=== PATIENT | female | born 1940 ===

== ENCOUNTER → 2020-04-24 | Day surgery (SDC) | payer MEDICARE, OTHER ==
[2020-04-23 13:34] VITALS: BMI 33.4
[~2020-04-24] MED LIST: LACTATED RINGERS 1,000 ML IV SCH; LIDOCAINE 1% INJ 10MG/ML (20 ML MDV) ONE; PROPOFOL 10 MG/ML 20 ML VIAL IV ONE
--- NOTE | 2020-04-24 08:06 | P.GSHP ---
History of Present Illness H&P Date: 04/24/20 CHIEF COMPLAINT: Colon screen HISTORY OF PRESENT ILLNESS: The patient is a 79-year-old female who presents for colon screen. Lower endoscopy was offered for further evaluation and management. PAST MEDICAL HISTORY: Please see list. PAST SURGICAL HISTORY: Please see list. MEDICATIONS: Please see list. ALLERGIES: Please see list. SOCIAL HISTORY: No illicit drug use FAMILY HISTORY: No reports of Crohn disease or ulcerative colitis. REVIEW OF ORGAN SYSTEMS: CONSTITUTIONAL: No reports of fevers or chills. PHYSICAL EXAM: VITAL SIGNS: Stable GENERAL: Well-developed pleasant in no acute distress. HEENT: No scleral icterus. Extraocular movements grossly intact. Moist buccal mucosa. NECK: Supple without lymphadenopathy. CHEST: Unlabored respirations. Equal bilateral excursions. CARDIOVASCULAR: Regular rate and rhythm. Distal 2+ pulses. ABDOMEN: Soft, nontender, nondistended. MUSCULOSKELETAL: No clubbing, cyanosis, or edema. ASSESSMENT: 1. Colon screen. PLAN: 1. Recommend proceeding with a lower endoscopy Past Medical History Past Medical History: Hypertension, Osteoarthritis (OA), Thyroid Disorder Additional Past Medical History / Comment(s): Hx irregular heart beat., states diarrhea. History of Any Multi-Drug Resistant Organisms: None Reported Past Surgical History: Joint Replacement, Tonsillectomy, Tubal Ligation Additional Past Surgical History / Comment(s): total left knee, total right hip and then fx and replacement again. Past Anesthesia/Blood Transfusion Reactions: No Reported Reaction Additional Past Anesthesia/Blood Transfusion Reaction / Comment(s): states only has spinal anesthesia Past Psychological History: Depression Smoking Status: Never smoker Past Alcohol Use History: None Reported Past Drug Use History: None Reported - Past Family History Mother Family Medical History: Cancer Additional Family Medical History / Comment(s): breast cancer Medications and Allergies Home Medications Medication Instructions Recorded Confirmed Type Atenolol [Tenormin] 25 mg PO HS 03/14/15 04/23/20 History DULoxetine HCL [Cymbalta] 60 mg PO HS 03/14/15 04/23/20 History Ibuprofen 800 mg PO DAILY 04/23/20 04/23/20 History Levothyroxine Sodium 137 mcg PO HS 04/23/20 04/23/20 History Allergies Allergy/AdvReac Type Severity Reaction Status Date / Time No Known Allergies Allergy Verified 04/23/20 13:12
[2020-04-24 11:39] VITALS: TEMP 98.5
--- NOTE | 2020-04-24 13:01 | P.PCN ---
Date of Procedure: 04/24/20 Description of Procedure: PREOPERATIVE DIAGNOSIS: Change in bowel habits POSTOPERATIVE DIAGNOSIS: Change in bowel habits Diverticulosis, scattered. OPERATION: Colonoscopy to the ileocecal valve and appendiceal orifice. SURGEON: Rylee Zhao MD. ANESTHESIA: MAC. INDICATIONS: The patient is a 79-year-old female who presents with change in bowel habits. Last colonoscopy over 10+ years ago. Benefits and risks were described and informed consent was obtained. DESCRIPTION OF PROCEDURE: The patient had undergone Suprep. She had been brought into the operating room and laid in the left lateral decubitus position. After adequate intravenous sedation, the rectum was examined with 2% lidocaine jelly. No external hemorrhoids were encountered. The rectal tone was within normal limits. No lesions were palpated in the rectal vault. An Olympus colonoscope was advanced until the ileocecal valve and appendiceal orifice were clearly viewed. The prep was good with clear visualization of the mucosal folds. The scope was removed with visualization of each mucosal fold. Moderate sigmoid diverticulosis started from 30 cm from the anal verge was encountered. No colonic polyps were found. No evidence of focal colitis was found. Retroflexion of the scope demonstrated grade 1 internal hemorrhoids without active bleeding or inflammation. The colon was desufflated. The patient had tolerated the procedure well. Withdrawal time was over 6 minutes. FINDINGS: Aronchick preparation quality scale 2 (1-5) Internal hemorrhoids, grade 1 No external prolapsed hemorrhoids. No arteriovenous malformations. No adenomatous polyps. No focal colitis. Moderate to severe sigmoid diverticulosis RECOMMENDATIONS: Lower endoscopy as needed. Plan - Discharge Summary New Discharge Prescriptions: Continue DULoxetine HCL [Cymbalta] 60 mg PO HS Atenolol [Tenormin] 25 mg PO HS Ibuprofen 800 mg PO DAILY Levothyroxine Sodium 137 mcg PO HS Discharge Medication List Atenolol [Tenormin] 25 mg PO HS 03/14/15 [History] DULoxetine HCL [Cymbalta] 60 mg PO HS 03/14/15 [History] Ibuprofen 800 mg PO DAILY 04/23/20 [History] Levothyroxine Sodium 137 mcg PO HS 04/23/20 [History] Follow up Appointment(s)/Referral(s): Rylee Zhao MD [STAFF PHYSICIAN] - 04/30/20 Patient Instructions/Handouts: Diverticulosis Diet (GEN), Diverticulosis (GEN) Activity/Diet/Wound Care/Special Instructions: Colonoscopy as needed Discharge Disposition: HOME SELF-CARE
[2020-04-24 13:03] VITALS: RESP 16
[2020-04-24 13:42] VITALS: BP 127/74; PULSE 77
--- NOTE | 2020-04-30 12:13 | CDI ---
Date: 04.30.20 CDS/Medical Billing Assistant Name: Tali Loredo Phone: If any questions, call Kae Mulligan Human Resources Receptionist at [phone] Patient Name: Barbra Sandoval Admit Date: 04.24.20 Discharge Date: 04.24.20 ATTENTION: The [facility] Coding Staff appreciate your assistance in clarifying documentation. Please respond to the clarification below the line at the bottom and electronically sign. The [facility] Coding staff will review the response and follow-up if needed. Please note: Queries are made part of the Legal Health Record. If you have any questions, please contact the Human Resources Receptionist. Dear Dr. Zhao In your documentation for the colonoscopy, you only documented the colonoscope was advanced until the ileocecal valve and appendiceal orifice you did not document whether the cecum was reached. Please specify whether the Cecum was reached or not. Thank you for your kind consideration. THE ILEOCECAL VALVE AND APPENDICEAL ORIFICE IS INSIDE THE CECUM WITH FULL ASSESSMENT!!!!!! KM 05/01/20 [email or web address]
== END | disposition home or self-care (01) ==
LOC: ORWHC2ENDO 10:51
PROVIDERS: ATTEND Surgery Plastic and Reconstructive Surgery
DX: K57.30 Diverticulosis of large intestine without perforation or abscess without bleeding (principal); K64.0 First degree hemorrhoids; I10 Essential (primary) hypertension; M19.90 Unspecified osteoarthritis, unspecified site; E07.9 Disorder of thyroid, unspecified; F32.9 Major depressive disorder, single episode, unspecified; Z86.79 Personal history of other diseases of the circulatory system; Z87.19 Personal history of other diseases of the digestive system; Z90.89 Acquired absence of other organs; Z98.51 Tubal ligation status; Z96.652 Presence of left artificial knee joint; Z96.641 Presence of right artificial hip joint; Z87.898 Personal history of other specified conditions; Z79.899 Other long term (current) drug therapy; Z79.1 Long term (current) use of non-steroidal anti-inflammatories (NSAID); Z79.890 Hormone replacement therapy; Z80.3 Family history of malignant neoplasm of breast
CPT/HCPCS: 45378; J2001; J2704